=== PATIENT | female | born 1980 | race Caucasian/White ===

== ENCOUNTER → 2016-12-23 | Outpatient (CLI) | payer BC | LOC: FIMAGING 08:05 | PROVIDERS: ATTEND Obstetrics & Gynecology | DX: O09.522 Supervision of elderly multigravida, second trimester (principal); Z3A.20 20 weeks gestation of pregnancy ==

== ENCOUNTER 2017-05-08 04:25 | Inpatient (IN) | payer BC ==
[2017-05-08] MEDS ORDERED: EPSOM SALT 454 GM TP PRN (05:10)
[2017-05-08] MEDS ORDERED: OXYTOCIN 20 UNIT in LR 1,000 ML IV PRN (05:10)
[2017-05-08] MEDS ORDERED: TERBUTALINE SULFATE 1 MG/ML VIAL IV PRN (05:10)
[2017-05-08] MEDS ORDERED: LR 1,000 ML IV PRN (05:10)
[2017-05-08] MEDS ORDERED: OLIVE OIL 118 ML BTL MISC PRN (05:10)
[2017-05-08] MEDS ORDERED: HYDROCORTISONE 0.5% CREAM TP PRN (06:46)
[2017-05-08] MEDS ORDERED: HYDROCODONE/APAP 5/325 TAB PO PRN (06:46)
[2017-05-08] MEDS ORDERED: SIMETHICONE 80 MG TAB CHEW PO PRN (06:46)
--- NOTE | 2017-05-08 06:55 | OBDEL ---
Info Type: Vaginal Presentation at Delivery: Vertex L&D Analgesia/Anesthesia Type: None GBS+: No - Care Provider Long Term/AMMONIA NITRATE OPERATOR: Mechelle Thomason - Hospital Course Intrapartum: 05/08/17 06:54 spontaneous labor- unmedicated SROM- moderate meconium 1st degree laceration Indications for Delivery: Spontaneous Labor, SROM Vaginal Delivery - Delivery Provider Delivery Physician/CNM: Kristi Robertson - Labor and Delivery Onset of Contractions Date: 05/07/17 Onset of Contractions Time: 22:00 Onset of Contractions Type: Spontaneous Rupture of Membranes Date: 05/08/17 Rupture of Membranes Time: 05:25 Rupture of Membranes Type: Spontaneous Amniotic Fluid Color: Thick Meconium Dilation Complete Date: 05/08/17 Dilation Complete Time: 05:45 Placenta Delivery Date: 05/08/17 Placenta Delivery Time: 05:58 Total Hours of Labor: 7 Laceration: 1st Degree Repair: 3-0, Vicryl Vaginal Sponge Count Correct: Yes Vaginal Needle Count Correct: Yes Vaginal Sweep Performed: Yes EBL: 250 Delivery Events: None [place] [facility] [place] Delivery Date: 05/08/17 Delivery Time: 05:47 ROSMERY: 05/07/17 Gestational Age: 40 week(s) and 1 day(s) Sex of : Male Score (1 Min): 7 ICD10 Worksheet Patient Problems: Problems Problem Status Onset (spontaneous vaginal delivery) Acute First degree perineal laceration Acute Thick meconium stained amniotic fluid Acute - ICD10 Problem Qualifiers (1) Thick meconium stained amniotic fluid (2) First degree perineal laceration
[2017-05-08 07:11] LABS: % IMMATURE GRANULYOCYTES 0.6 % (0.0-1.1); ABSOLUTE IMMATURE GRANULOCYTES 0.08 10^3/uL (0.00-0.10); ADD DIFF? NO; ADD MORPH? NO; ADD SCAN? NO; ATYPICAL LYMPHOCYTE FLAG 0 (0-99); FRAGMENT RBC FLAG 0 (0-99); HEMATOCRIT 38.9 % (38.0-47.0); HEMOGLOBIN 13.7 g/dL (12.6-16.3); LEFT SHIFT FLG 0 (0-99); LIPEMIA HEMOLYSIS FLAG 90 (0-99); MEAN CELL HEMOGLOBIN CONCENTR. 35.2 g/dL (32.4-36.7); MEAN CELL VOLUME 93.7 fL (81.5-99.8); MEAN PLATELET VOLUME 10.3 fL (8.7-11.7); PLATELET CLUMPS FLAG 0 (0-99); PLATELET COUNT 193 10^3/uL (150-400); RED BLOOD CELL COUNT 4.15 10^6/uL (4.18-5.33); RED CELL DISTRIBUTION WIDTH 12.3 % (11.5-15.2)
[2017-05-08] MEDS: IBUPROFEN 600 MG TAB PO PRN ×3 (07:49→19:53)
[2017-05-08] MEDS: ACETAMINOPHEN 325 MG TAB PO PRN ×2 (12:36→18:32)
[2017-05-08] MEDS: DOCUSATE SODIUM 100 MG CAP PO PRN (16:36)
[2017-05-08 20:54] VITALS: O2SAT 96
[2017-05-09] MEDS: ACETAMINOPHEN 325 MG TAB PO PRN ×2 (04:26→10:43)
[2017-05-09] MEDS: IBUPROFEN 600 MG TAB PO PRN ×2 (06:33→13:05)
[2017-05-09] MEDS: DOCUSATE SODIUM 100 MG CAP PO PRN (09:44)
[2017-05-09 09:47] VITALS: BP 102/63; PULSE 63; RESP 19; TEMP 97.8
--- NOTE | 2017-05-09 11:57 | OBGCSDC ---
General Delivery Information - General Info : 3 Para: 2 Abortions: 1 Type: Vaginal L&D Analgesia/Anesthesia Type: None Admission Date: 05/08/17 Labs: Patient ABO/Rh A POSITIVE 05/08/17 06:05 Hct 38.9 % (38.0-47.0) 05/08/17 06:05 - Hospital Course Intrapartum: 05/08/17 06:54 spontaneous labor- unmedicated SROM- moderate meconium 1st degree laceration : 05/09/17 11:55 PPD#1 doing well. Desires DC home today. She denies significant pain or lochia. She is . Vaginal - Delivery Provider Delivery Physician/CNM: Kristi Robertson - Diagnosis Labor: Spontaneous Rupture of Membranes Type: Spontaneous Amniotic Fluid Color: Thick Meconium Laceration: 1st Degree Repair: 3-0, Vicryl Delivery Events: None - Delivery EBL: 250 [place] [facility] [place] Delivery Date: 05/08/17 Delivery Time: 05:47 ROSMERY: 05/07/17 Gestational Age: 40 week(s) and 2 day(s) Sex of Infant: Male Weight (gm): 3518 g Score (1 Min): 7 Score (5 Min): 8 Discharge Information - Discharge Information Condition: Good Instruction/Follow Up: Four Weeks, Six Weeks
== END 2017-05-09 14:45 | disposition home or self-care (01) | DRG 775 ==
LOC: OBSVTOIN 04:25 → FLD 04:25 → FOB 08:47
PROVIDERS: ADMIT Advanced Practice Midwife; ATTEND Obstetrics & Gynecology Gynecology
DX: O48.0 Post-term pregnancy (principal); O70.0 First degree perineal laceration during delivery; O77.0 Labor and delivery complicated by meconium in amniotic fluid; Z3A.40 40 weeks gestation of pregnancy; Z37.0 Single live birth

== ENCOUNTER → 2019-02-05 | Outpatient (CLI) | payer BC | LOC: FIMAGING 07:27 ==